=== PATIENT | female | born 1990 | race Caucasian/White ===

== ENCOUNTER 2017-07-15 14:37 | Emergency (ER) | payer OTHER ==
[~2017-07-15] VITALS: Ht 170.2 cm; Wt 112.8 kg
[~2017-07-15 14:37] MED LIST: NAPROXEN500 MG PO; PEN-VEE K,VEET500 MG PO
[2017-07-15] MEDS ORDERED: NORCO 5/3251 TABLET PO (16:50)
[2017-07-15] MEDS ORDERED: SILVADENE20 GM TP (16:50)
[2017-07-15] MEDS ORDERED: BACTRIM,SEPT1 TABLET PO (16:50)
[2017-07-15 17:16] VITALS: BP 127/91
== END 2017-07-15 17:17 | disposition home or self-care (01) ==
LOC: EME 14:37
PROC: 0H9DXZZ Drainage of Right Lower Arm Skin, External Approach (ICD-10-PCS; principal; 2017-07-15)
DX: T22.221A Burn of second degree of right elbow, initial encounter (principal); T31.0 Burns involving less than 10% of body surface; B95.62 Methicillin resistant Staphylococcus aureus infection as the cause of diseases classified elsewhere; F17.200 Nicotine dependence, unspecified, uncomplicated; Z88.5 Allergy status to narcotic agent
CPT/HCPCS: 73080; 87070; 87075; 87077; 87147; 87186; 87205; 99281; 99284

== ENCOUNTER 2017-07-16 23:38 | Emergency (ER) | payer OTHER ==
[~2017-07-16] VITALS: Ht 170.2 cm; Wt 111.5 kg
[~2017-07-16 23:38] MED LIST changes: +BACTRIM,SEPT1 TABLET PO; +NORCO 5/3251 TABLET PO; +SILVADENE20 GM TP
[2017-07-17] MEDS ORDERED: BACTRIM,SEPT1 TABLET PO (00:36)
[2017-07-17] MEDS ORDERED: NORCO 5/3251 TABLET PO (00:37)
[2017-07-17] MEDS ORDERED: SILVADENE20 GM TP (00:37)
[2017-07-17] MEDS ORDERED: KEFLEX500 MG PO (00:37)
[2017-07-17 01:19] VITALS: BP 118/89
== END 2017-07-17 01:20 | disposition home or self-care (01) ==
LOC: EME 23:38
DX: L03.113 Cellulitis of right upper limb (principal); S50.311A Abrasion of right elbow, initial encounter; W19.XXXA Unspecified fall, initial encounter; F17.200 Nicotine dependence, unspecified, uncomplicated
CPT/HCPCS: 99281; 99284

== ENCOUNTER 2017-11-09 04:02 | Emergency (ER) | payer OTHER ==
[~2017-11-09] VITALS: Ht 170.2 cm; Wt 103.5 kg
[~2017-11-09 04:02] MED LIST changes: +KEFLEX500 MG PO
[2017-11-09] MEDS ORDERED: BENADRYL50 MG PO (04:53)
[2017-11-09] MEDS ORDERED: ELIMITE 5% CREA60 GM TP (04:53)
[2017-11-09 05:27] VITALS: BP 121/96
== END 2017-11-09 05:42 | disposition home or self-care (01) ==
LOC: EME 04:02
DX: B85.2 Pediculosis, unspecified (principal); B86 Scabies; Z88.5 Allergy status to narcotic agent; Z33.1 Pregnant state, incidental
CPT/HCPCS: 99281; 99283

== ENCOUNTER 2017-12-30 11:07 | Emergency (ER) | payer OTHER ==
[~2017-12-30] VITALS: Ht 170.2 cm; Wt 101.1 kg
[~2017-12-30 11:07] MED LIST changes: +BENADRYL50 MG PO; +ELIMITE 5% CREA60 GM TP
[2017-12-30 12:42] VITALS: BP 98/66
== END 2017-12-30 12:52 | disposition home or self-care (01) ==
LOC: EME 11:07
DX: M79.672 Pain in left foot (principal); M79.671 Pain in right foot; Z33.1 Pregnant state, incidental; F17.200 Nicotine dependence, unspecified, uncomplicated; Z88.5 Allergy status to narcotic agent; Z79.891 Long term (current) use of opiate analgesic
CPT/HCPCS: 73630